=== PATIENT | female | born 1940 | race African-American/Black ===

== ENCOUNTER 2016-07-25 08:16 | Emergency (ER) | payer MEDICARE, MEDICAID ==
[~2016-07-25] VITALS: Ht 165.1 cm; Wt 88.0 kg
[~2016-07-25 08:16] MED LIST: ASPI81TA2 PO; CLON0.5T4 PO; DEXL60CA3 PO; LIRA0.6P; METH2.5T PO; METO50TA5 PO; OMEGA3 PO; ROSU10TA PO; SITA1TAB4; VALS1TAB76 PO
[2016-07-25] MEDS ORDERED: HYDROCODONE/ACETAMINOPHEN 5/325MG TABLET PO ONE (09:15)
[2016-07-25 10:57] VITALS: BP 152/88
== END 2016-07-25 11:01 | disposition home or self-care (01) ==
LOC: ER 09:25 → EDBD 09:25 → ER 11:01
DX: M25.512 Pain in left shoulder (principal); M06.9 Rheumatoid arthritis, unspecified; E11.9 Type 2 diabetes mellitus without complications; I10 Essential (primary) hypertension; J44.9 Chronic obstructive pulmonary disease, unspecified; K21.9 Gastro-esophageal reflux disease without esophagitis; Z79.82 Long term (current) use of aspirin; Z90.710 Acquired absence of both cervix and uterus; Z96.659 Presence of unspecified artificial knee joint
CPT/HCPCS: 73030; 93005; 99284

== ENCOUNTER → 2016-07-29 | Outpatient (CLI) | payer MEDICARE, MEDICAID | END | disposition home or self-care (01) | LOC: RAD 10:32 | PROVIDERS: ATTEND Internal Medicine Rheumatology | DX: M19.012 Primary osteoarthritis, left shoulder (principal); M75.102 Unspecified rotator cuff tear or rupture of left shoulder, not specified as traumatic | CPT/HCPCS: 73221 ==

== ENCOUNTER 2017-11-23 08:57 | Emergency (ER) | payer MEDICARE, MEDICAID ==
[~2017-11-23] VITALS: Ht 165.1 cm; Wt 90.0 kg
[~2017-11-23 08:57] MED LIST changes: +ASPI-1160 PO; -ASPI81TA2 PO; +CLON0.5T12 PO; -CLON0.5T4 PO; +METO-539 PO; -METO50TA5 PO
[2017-11-23 09:23] VITALS: BP 170/90
== END 2017-11-23 11:00 | disposition home or self-care (01) ==
LOC: ER 09:21
DX: M79.672 Pain in left foot (principal); I10 Essential (primary) hypertension; E11.9 Type 2 diabetes mellitus without complications; Z79.899 Other long term (current) drug therapy; Z79.82 Long term (current) use of aspirin
CPT/HCPCS: 99282

== ENCOUNTER 2018-11-21 08:22 | Emergency (ER) | payer MEDICARE, MEDICAID ==
[~2018-11-21] VITALS: Ht 165.1 cm; Wt 91.0 kg
[~2018-11-21 08:22] MED LIST changes: +CRES10 PO; -ROSU10TA PO
[2018-11-21] MEDS ORDERED: ACETAMINOPHEN WITH CODEINE 300/30MG TABLET PO ONE (10:00)
[2018-11-21 10:06] VITALS: BP 174/92
== END 2018-11-21 11:19 | disposition home or self-care (01) ==
LOC: ER 08:22
DX: S92.514A Nondisplaced fracture of proximal phalanx of right lesser toe(s), initial encounter for closed fracture (principal); E11.9 Type 2 diabetes mellitus without complications; I10 Essential (primary) hypertension; M19.90 Unspecified osteoarthritis, unspecified site; Z90.49 Acquired absence of other specified parts of digestive tract; W01.0XXA Fall on same level from slipping, tripping and stumbling without subsequent striking against object, initial encounter; Y93.89 Activity, other specified; Y92.018 Other place in single-family (private) house as the place of occurrence of the external cause
CPT/HCPCS: 73660; 99283

== ENCOUNTER 2019-01-02 09:22 | Emergency (ER) | payer BC, MEDICARE ==
[~2019-01-02] VITALS: Ht 165.1 cm; Wt 90.0 kg
[2019-01-02 09:28] VITALS: BP 165/85
[2019-01-02] MEDS ORDERED: VISCOUS LIDOCAINE 2% 15 ML UDC PO STA (10:43)
[2019-01-02] MEDS ORDERED: CHLORHEXIDINE GLUCONATE 0.12% MOUTHWASH UDC SSP SCH (10:45)
== END 2019-01-02 11:26 | disposition home or self-care (01) ==
LOC: ER 09:23
DX: K12.0 Recurrent oral aphthae (principal); M54.5 Low back pain; I10 Essential (primary) hypertension; E11.9 Type 2 diabetes mellitus without complications; M19.90 Unspecified osteoarthritis, unspecified site; I25.2 Old myocardial infarction; Z90.49 Acquired absence of other specified parts of digestive tract; Z96.659 Presence of unspecified artificial knee joint
CPT/HCPCS: 99283

== ENCOUNTER 2019-08-26 13:07 | Emergency (ER) | payer OTHER, MEDICARE ==
[~2019-08-26] VITALS: Ht 177.8 cm; Wt 75.0 kg
[~2019-08-26 13:07] MED LIST changes: -CLON0.5T12 PO; +CLON0.5T4 PO
[2019-08-26 13:14] VITALS: BP 197/78
[2019-08-26] MEDS ORDERED: ACETAMINOPHEN 325MG TABLET PO ONE (14:00)
== END 2019-08-26 15:31 | disposition home or self-care (01) ==
LOC: ER 13:07
DX: M25.531 Pain in right wrist (principal); M79.641 Pain in right hand; I10 Essential (primary) hypertension; E11.9 Type 2 diabetes mellitus without complications; M19.90 Unspecified osteoarthritis, unspecified site; Z90.49 Acquired absence of other specified parts of digestive tract; Z96.659 Presence of unspecified artificial knee joint; X50.3XXA Overexertion from repetitive movements, initial encounter; Y93.89 Activity, other specified; Y92.018 Other place in single-family (private) house as the place of occurrence of the external cause
CPT/HCPCS: 29125; 73110; 73130; 99284